=== PATIENT | male | born 1930 | race Caucasian/White ===

== ENCOUNTER 2017-08-03 08:36 | Day surgery (SDC) | payer MEDICARE, OTHER ==
[~2017-08-03] VITALS: Ht 180.3 cm; Wt 85.6 kg
[~2017-08-03 08:36] MED LIST: ALOE VERA PO; ASPI81CH PO; ATOR40TA PO; CALCAVITDA PO; CEFD300 PO; CEPH500 PO; CLOP75 PO; CYAN1000 PO; Hair, Skin & N1 EACH PO; Levitra20 MG PO; MELA3 PO; Mobic15 MG PO; TAMS.4ER PO; TRIA80TC TOP
== END 2017-08-03 12:39 | disposition home or self-care (01) ==
LOC: ORSCSDS 08:36
PROVIDERS: Podiatrist Foot & Ankle Surgery
PROC: 0SGQ0ZZ (ICD-10-PCS; principal; 2017-08-03 10:15)
PROC: 0SNQ0ZZ Release Left Toe Phalangeal Joint, Open Approach (ICD-10-PCS; principal; 2017-08-03 10:15)
PROC: 0QSP04Z Reposition Left Metatarsal with Internal Fixation Device, Open Approach (ICD-10-PCS; principal; 2017-08-03 10:15)
PROC: 0QSR04Z Reposition Left Toe Phalanx with Internal Fixation Device, Open Approach (ICD-10-PCS; principal; 2017-08-03 10:15)
PROC: 0SNN0ZZ Release Left Metatarsal-Phalangeal Joint, Open Approach (ICD-10-PCS; principal; 2017-08-03 10:15)
DX: M20.12 Hallux valgus (acquired), left foot (principal); S93.105A Unspecified dislocation of left toe(s), initial encounter; M20.42 Other hammer toe(s) (acquired), left foot; I10 Essential (primary) hypertension; Z86.73 Personal history of transient ischemic attack (TIA), and cerebral infarction without residual deficits; Z79.82 Long term (current) use of aspirin; Z79.899 Other long term (current) drug therapy; Z87.891 Personal history of nicotine dependence
CPT/HCPCS: C1713; J0171; J0690; J1100; J2250; J2370; J2405; J3010; J7120